=== PATIENT | male | born 1995 | race African-American/Black ===

== ENCOUNTER 2017-11-28 11:33 | Emergency (ER) | payer MEDICAID, OTHER ==
[2017-11-28] MEDS ORDERED: ACETAMINOPHEN 500 MG TAB PO ONE (11:42)
[2017-11-28] MEDS ORDERED: IBUPROFEN 600 MG TAB PO ONE (11:42)
[2017-11-28 11:47] VITALS: BP 120/54; RESP 18
--- NOTE | 2017-11-28 11:49 | EDPHY ---
H & P Stated Complaint: Flu sxs x 3 days Time Seen by Provider: 11/28/17 11:49 HPI/ROS: HPI: This is a 22-year-old male presents with Chief Complaint: Flu sxs x 3 days Location: Body Quality: Ache Duration: 3 days Signs and Symptoms: No neck stiffness, + mild generalized headache, no sore throat, no ear pain, no chest pain, no shortness of breath, no abdominal pain, no nausea, no vomiting, no diarrhea Timing: Constant Severity: Moderate Context: Patient works at [employer] and presents with complaints of body aches, fatigue, fever, dry cough for the last 3 days. He did not go into work today so he came to the emergency room. He is requesting a note until Sunday to have off as he is scheduled to work the next 3 days. He took Tylenol yesterday x1 time. He has not taking any [id number] antipyretic medications today. No history of lung disease. Did not receive his influenza vaccine this year. Eating and drinking well but admits to a poor appetite. Modifying Factors: Comment: ROS: see HPI Constitutional: + fever, no chills, no weight loss Eyes: No blurred vision Respiratory: No shortness of breath, + cough Cardiovascular: No chest pain Gastrointestinal: No nausea, no vomiting, no diarrhea Genitourinary: No dysuria Extremities: No myalgias Neurologic: No weakness, no numbness Skin: No rashes Hematologic: No bruising, no bleeding MEDICAL/SURGICAL/SOCIAL HISTORY: Medical history: Generally healthy. Does not take any regular medications. Surgical history: Denies Social history: Employed. CONSTITUTIONAL: Ill but nontoxic in appearance young adult male, awake and alert, no obvious distress HEENT: Atraumatic and normocephalic, PERRL, EOMI. Tympanic membranes clear. Oropharynx clear, no exudate and moist pink mucosa. Airway patent. No lymphadenopathy. No meningismus. Cardiovascular: Normal S1/S2, regular rate, regular rhythm, without murmur rub or gallop. PULMONARY/CHEST: Symmetrical and nontender. Clear to auscultation bilaterally. Good air movement. No accessory muscle usage. ABDOMEN: Soft, nondistended, nontender, no rebound, no guarding, no peritoneal signs, no masses or organomegaly. No CVAT. EXTREMITIES: 2/2 pulses, strength 5/5, no deformities, no clubbing, no cyanosis or edema. NEUROLOGICAL: no focal neuro deficits. GCS 15. SKIN: Warm and dry, no erythema. no rash. Good capillary refill. Source: Patient Exam Limitations: No limitations - Personal History Current Tetanus Diphtheria and Acellular Pertussis (TDAP): Yes - Medical/Surgical History Other PMH: none - Social History Smoking Status: Current every day smoker Constitutional: Initial Vital Signs Temperature (C) 39.5 C H 11/28/17 11:35 Heart Rate 94 11/28/17 11:35 Respiratory Rate 18 11/28/17 11:35 Blood Pressure 120/54 L 11/28/17 11:35 O2 Sat (%) 96 11/28/17 11:35 O2 Delivery Mode Room Air Allergies/Adverse Reactions: No Known Allergies Allergy (Unverified 11/28/17 11:54) Home Medications: Medication Instructions Recorded NK [No Known Home Meds] 11/28/17 Medical Decision Making ED Course/Re-evaluation: Influenza test, oral medications ordered Vital signs reviewed upon arrival; fever noted; no hypoxia/tachycardia No signs of a hypoxia/respiratory distress/meningitis/sinusitis/otitis media/ pharyngitis/neurological deficits Febrile upon arrival the patient has taking any antipyretic medications today. Both Tylenol and ibuprofen given. Patient is drinking food at bedside. Influenza A positive; Not a Tamiflu candidate. Advised supportive care This patient was seen under the supervision of my secondary supervising physician. I evaluated care for this patient independently. Differential Diagnosis: Adult fever including but not limited to viral syndromes including influenza, urinary tract infection, pneumonia and sepsis. - Data Points Laboratory Results: 11/28/17 11:40 Nasal Influenza A PCR FLU A DETECTED H (NEGATIVE) Nasal Influenza B PCR NEGATIVE FOR FLU B (NEGATIVE) Medications Given: Discontinued Medications Acetaminophen (Tylenol) 500 mg PO EDNOW ONE Stop: 11/28/17 11:43 Last Admin: 11/28/17 11:53 Dose: 500 mg Ibuprofen (Motrin) 600 mg PO EDNOW ONE Stop: 11/28/17 11:43 Last Admin: 11/28/17 11:53 Dose: 600 mg Departure - Departure Disposition: Home, Routine, Self-Care Clinical Impression: Influenza A Condition: Good Instructions: Influenza (ED) Additional Instructions: Consume a minimum of 8-10 glasses of water or electrolyte fluid replacement drinks that include Gatorade, Powerade, Pedialyte. If you are not able to drink enough fluids, eat popsicles instead. Eat a bland diet for the next 48 hours and then slowly advance as tolerated. Take Tylenol 650 mg every 4 hours and/or Ibuprofen 600 mg every 8 hours with food as needed for pain. Rest as much as possible until you are feeling better. Referrals: [facility],. [Clinic] - As per Instructions Stand Alone Forms: Work Excuse
[2017-11-28 13:19] VITALS: PULSE 84; TEMP 102.2; O2SAT 96
== END 2017-11-28 13:26 | disposition home or self-care (01) ==
LOC: EDUNIT#
DX: J10.1 Influenza due to other identified influenza virus with other respiratory manifestations (principal); F17.200 Nicotine dependence, unspecified, uncomplicated